=== PATIENT | female | born 1975 | race Caucasian/White ===

== ENCOUNTER → 2020-10-08 09:39 | Outpatient (CLI) | payer OTHER, SELFPAY ==
[2020-10-08 10:06] LABS: Basophils # 0.1 K/mm3 (0-0.2); Basophils % 0.5 % (0.1-2.0); Eosinophils # 0.3 K/mm3 (0.0-0.4); Eosinophils % 2.7 % (0.1-12.0); Hematocrit 30.1 % (37.0-47.0); Hemoglobin 8.9 g/dL (12.2-16.2); Mean Corpuscular HGB Conc 29.4 g/dL (31.8-35.4); Mean Corpuscular Volume 64.7 fl (81-99); Monocytes # 0.5 K/mm3 (0.1-1.0); Monocytes % 5.2 % (1.7-9.3); Neutrophils # 5.6 K/mm3 (1.8-7.8); Neutrophils % 53.6 % (37.0-80.0); Platelet Count 401 K/mm3 (142-424); Red Blood Count 4.65 M/mm3 (4.20-5.40); Red Cell Distribution Width 17.1 % (11.5-17.5); White Blood Count 10.5 K/mm3 (4.8-10.8)
[2020-10-08 10:58] LABS: Chloride 105 mmol/L (98-107); Potassium 4.4 mmoL/L (3.5-5.1); Sodium 138 mmol/L (136-145)
[2020-10-08 10:59] LABS: HCG Qualitative, Serum Negative (Negative)
[2020-10-08 11:00] LABS: Blood Urea Nitrogen 10 mg/dl (7-17)
[2020-10-08 11:01] LABS: Alanine Aminotransferase 15 U/L (12-78); Albumin Level 4.3 g/dl (3.5-5.0); Albumin/Globulin Ratio 1.3 (1.1-1.8); Alkaline Phosphatase 72 U/L (38-126); Anion Gap 13.4 mEq/L (5-15); Aspartate Amino Transferase 24 U/L (14-36); Bilirubin,Total 0.4 mg/dl (0.2-1.3); Calcium 9.1 mg/dl (8.4-10.2); Carbon Dioxide 24 mmol/L (22.0-30.0); Estimated Glomerular Filt Rate 78 ml/min (>60); GFR (African American) 94 ML/MIN (>60); Globulin 3.4 g/dL (1.3-3.2); Glucose 135 mg/dl (74-100); Total Protein,Serum 7.7 g/dl (6.3-8.2)
== END ==
PROVIDERS: Visit Provider Obstetrics & Gynecology
DX: Z01.812 Encounter for preprocedural laboratory examination (principal); Z11.52 Encounter for screening for COVID-19; N84.1 Polyp of cervix uteri
CPT/HCPCS: 36415; 80053; 84703; 85025; U0003

== ENCOUNTER 2020-10-09 11:59 | Day surgery (SDC) | payer OTHER, SELFPAY ==
[2020-10-07 10:04] VITALS: BMI 31.0
[2020-10-09] VITALS (9 sets, daily range): BP systolic 116–150; BP diastolic 67–86; PULSE 78–89; RESP 16–18; TEMP 36.5–37.8; O2SAT 98–100
--- NOTE | 2020-10-09 16:05 | PC.NURSE ---
1605-pt drinking ice water at this time w/out difficulty
--- NOTE | 2020-10-09 16:24 | PC.NURSE ---
1618-detailed report given to MYLENE Potter 1620-pt transported to post op via stretcher w/zohra rails up and left in care of MYLENE Potter with bed locked in lowest position, vss, pt stable
--- NOTE | 2020-10-09 16:30 | P.PN_ITS ---
[facility] Anesthesia Checklist - Patient Identification Patient Identification: Arm Band - Structural Data Admitted From: Home Planned Operative Procedure/s: Hysteroscopy D & C, cervical polypectomy, myosure Consent for Planned Operative Procedure(s) Verified: Yes Verified Documents: Surgical Consent, History and Physical - NPO Status Verified Time NPO: 00:00 - Additional verifications Anesthesia Reactions: No Hx Blood Transfusions: No Blood Transfusion Reaction: No - Airway Assessment C-Spine Mobility Assessed: Yes TMJ Mobility Assessed: Yes Dentition: Good Dentition - Neurological Assessment Level of Consciousness: Awake, Alert - Anesthesia Plan Anesthesia Risk discussed: Yes Anesthesia Plan: Verified ASA Class: II Anesthesia Type: General [facility] History Medical History: Denies:: Cancer, Diabetes Mellitus Type 1, Diabetes Mellitus Type 2, Internal Pacemaker, MRSA, Seizures *Have you ever received a pneumonia vaccine?: No *Have you received a flu vaccine this season?: No Other Medical History: Denies: Blood Transfusion Reaction Anesthesia experience/problems:: None Laterality Cases: Bilateral: Tonsillectomy Other Surgeries: No: Pacemaker Amputation: No Fractures: Yes - *Social History Last grade of school completed: Some college Smoking Status: Current every day smoker Tobacco Type: e-cigarettes # Packs/Day (cigarettes): 1 Alcohol Intake: never Alcohol Intake Frequency:: holidays/special occasions only Substance Use Type: former substance user *Occupational Status:: unemployed Housing: house Household Members: spouse *Travel in the last 8 weeks: None Family Hx:: Non-contributory
--- NOTE | 2020-10-09 16:32 | HMH.ANESI ---
[facility] Anesthesia Record Part I Intake, IV Amount: 500 Estimated blood loss (mL): 25 Urine output (mL): 0 Blood Products used (#): none Blood Pressure: 127/69 SaO2: 98 Pulse Rate: 84 Respiratory Rate: 16 Temperature: 97.7 F Patient is:: Awake, Drowsy Stable to PACU at:: 16:00
--- NOTE | 2020-10-09 17:13 | P.OP_ITS ---
Date of procedure: 10/09/20 Pre-op Diagnosis:: cervical polyp Post-op Diagnosis:: same plus endometrial polyps Procedure performed:: 1. Cervical polypectomy 2. D&C Hysteroscopy 3. Myosure excision of uterine polyps Surgeon:: Dolly Bailey MD [employer]:: Other Anesthesia: GETA Estimated blood loss (mL): 15 Operative findings:: 3 large polyps prolapsing from cervix: 2x1cm, 1x1cm and 8x1cm 2 anterior uterine cavity polyps Operative note:: The patient was taken to the OR and general anesthesia administered without difficulty. She was prepped/draped in lithotomy position. A large polyp was visible prolapsing through the vaginal opening. Retractors were placed in the vagina and the polyp was noted to be flanked by two smaller polyps, approximately 2x1cm and 1x1cm. The smaller polyps were excised using electrocautery in order to obtain better visualization of the larger polyp. The base of this polyp was seen at the anterior portion of the ectocervix and the polyp was excised with electrocautery. The cervix was dilated and hysteroscopic evaluation performed. 2 smaller polyps were visualized within the endometrial cavity, on the anterior surface. The Myosure was used to excise these lesions and to sample endometrial tissue throughout the cavity. Once this was completed, all instruments were removed from her uterus and vagina. The cervical tissue appeared hemostatic; monsel's solution was applied for additional hemostasis. She was taken out of lithotomy position, awakened from anesthesia and taken to the PACU in stable condition. All sponge, needle & instrument counts correct. EBL 15cc. Condition: stable Disposition: PACU Specimens:: cervical polyp x 3 endometrial curettings Complications:: none
--- NOTE | 2020-10-10 13:13 | HMH.ANESII ---
[facility] Anesthesia Record Part II Discharge Time: 16:20 Destination: Surgical Day Care (OP Surgery) PACU nurse assessment reviewed?: Yes Patient Condition:: Good Anesthesia Complications:: None Swallowing reflex intact?: Yes Cyanosis?: No Blood Pressure: 116/67 Pulse Rate: 78 Temperature: 98.2 F Mental Status: Alert & Oriented Pain level:: 0 Nausea and/or vomitting:: None Intake, IV Amount: 500
[2020-10-10 13:14] VITALS: BP 116/67; PULSE 78; TEMP 36.8
== END 2020-10-09 16:51 | disposition home or self-care (01) ==
LOC: OR 12:02
PROVIDERS: Visit Provider Obstetrics & Gynecology
PROC: 0UB98ZZ Excision of Uterus, Via Natural or Artificial Opening Endoscopic (ICD-10-PCS; CPT 58558; principal; 2020-10-09 13:30)
DX: N84.1 Polyp of cervix uteri (principal); N93.9 Abnormal uterine and vaginal bleeding, unspecified; F19.11 Other psychoactive substance abuse, in remission; Z79.899 Other long term (current) drug therapy; Z72.0 Tobacco use
CPT/HCPCS: 57135; 58563; 96374; J0131; J2405